=== PATIENT | female | born 1985 | race Caucasian/White ===

== ENCOUNTER 2016-09-06 12:29 | Emergency (ER) | payer MEDICAID, OTHER ==
[2016-09-06 12:30] VITALS: BMI 23.8
[2016-09-06 12:42] VITALS: RESP 18; TEMP 98.3
--- NOTE | 2016-09-06 13:58 | C.PDOC ---
History Of Present Illness 31 y/o female presents to the ED with complaints of decreased hearing to right ear for the past week. Pt also reports pain to right ear radiating to right face which onset today. Denies fever, chills. Pt using debrox in both ears with improvement to left but not right. She reports swimming in pool 1 week ago. Time Seen by Provider: 09/06/16 12:48 Chief Complaint (Nursing): ENT Problem History Per: Patient History/Exam Limitations: None Onset/Duration Of Symptoms: Days Current Symptoms Are (Timing): Still Present Symptoms Have Been: Continuous Severity: Moderate Anticoagulant/Antiplatlet Use?: No Past Medical History Reviewed: Historical Data, Nursing Documentation, Vital Signs Vital Signs: Last Vital Signs Temp 98.3 F 09/06/16 12:40 Pulse 72 09/06/16 14:33 Resp 18 09/06/16 14:33 BP 119/65 09/06/16 14:33 Pulse Ox 98 09/06/16 14:33 - Medical History PMH: Back Problems - [facility] Procedures CAUTERY TO STOP EPISTAX (05/22/01) Family History: States: Unknown Family Hx - Social History Hx Tobacco Use: Yes Hx Alcohol Use: Yes Hx Substance Use: Yes - Immunization History Hx Tetanus Toxoid Vaccination: Yes Hx Influenza Vaccination: Yes Hx Pneumococcal Vaccination: No Review Of Systems Constitutional: Negative for: Fever, Chills ENT: Positive for: Ear Pain (right), Other (decreased hearing right ear, right facial pain) Cardiovascular: Negative for: Chest Pain Respiratory: Negative for: Cough Physical Exam - Physical Exam Appears: Non-toxic, No Acute Distress Skin: Warm, Dry, No Rash Head: Atraumatic, Normacephalic Eye(s): bilateral: Normal Inspection Ear(s): Bilateral: Other (Left ear canal normal with some wax, TM not fully visualized. Right tragus tenderness with erythema, debris and wax in canal, canal patent. ) Nose: Normal Oral Mucosa: Moist Throat: Normal, No Erythema Neck: Normal, Normal ROM, Supple Lymphatic: No Adenopathy Cardiovascular: Rhythm Regular, No Murmur Respiratory: Normal Breath Sounds, No Rales, No Rhonchi, No Wheezing Neurological/Psych: Oriented x3, Normal Speech ED Course And Treatment O2 Sat by Pulse Oximetry: 99 (room air) Pulse Ox Interpretation: Normal Disposition - Disposition Referrals: Marino Wilson MD [Staff Provider] - Disposition: HOME/ ROUTINE Disposition Time: 14:12 Condition: STABLE Additional Instructions: Use drops and take antibiotics as prescribed. Follow up with Dr Wilson as soon as possible. Tylenol or Ibuprofen for pain. 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 - Scribe Statement The provider has reviewed the documentation as recorded by the Scribepifanio Nicolas All medical record entries made by the Dejuanibepifanio were at my direction and personally dictated by me. I have reviewed the chart and agree that the record accurately reflects my personal performance of the history, physical exam, medical decision making, and the department course for this patient. I have also personally directed, reviewed, and agree with the discharge instructions and disposition.
[2016-09-06 14:33] VITALS: BP 119/65; PULSE 72
[2016-09-06 22:40] VITALS: O2SAT 99
== END 2016-09-06 14:34 | disposition home or self-care (01) ==
LOC: C.ER 12:29
DX: H60.91 Unspecified otitis externa, right ear (principal)

== ENCOUNTER 2016-09-08 15:40 | Emergency (ER) | payer OTHER ==
[2016-09-08 15:40] VITALS: BMI 23.8
[2016-09-08 16:04] VITALS: RESP 18; O2SAT 100
[2016-09-08] MEDS ORDERED: Sodium Chloride 0.9% 1,000 ML IV ONE (16:12)
[2016-09-08] MEDS ORDERED: Sodium Chloride 0.9% 1,000 ML ONE (16:24)
[2016-09-08] MEDS ORDERED: Morphine 4 MG/ML VIAL ONE (16:25)
--- NOTE | 2016-09-08 16:27 | C.PDOC ---
History Of Present Illness 31 year old female presents to the ED for evaluation from ENT for complaints of right ear pain and right sided headache. Patient states she was evaluated in the ED several days ago and was discharged home with antibiotics for an ear infection. She notes she saw her ENT today and was sent to ED to rule out mastoiditis. Patient denies any fever or other complaints at this time. Time Seen by Provider: 09/08/16 15:59 Chief Complaint (Nursing): ENT Problem History Per: Patient History/Exam Limitations: None Onset/Duration Of Symptoms: Days Current Symptoms Are (Timing): Still Present Quality (Mouth/Throat): denies: Tenderness Symptoms Have Been: Continuous Anticoagulant/Antiplatlet Use?: No Recent Aspirin Use: No Past Medical History Reviewed: Historical Data, Nursing Documentation, Vital Signs Vital Signs: Last Vital Signs Temp 98.3 F 09/08/16 18:11 Pulse 80 09/08/16 18:11 Resp 18 09/08/16 18:11 BP 112/70 09/08/16 18:11 Pulse Ox 100 09/08/16 18:11 - Medical History PMH: Back Problems - [facility] Procedures CAUTERY TO STOP EPISTAX (05/22/01) Family History: States: Unknown Family Hx - Social History Hx Tobacco Use: Yes Hx Alcohol Use: Yes Hx Substance Use: Yes - Immunization History Hx Tetanus Toxoid Vaccination: Yes Hx Influenza Vaccination: Yes Hx Pneumococcal Vaccination: No Review Of Systems Constitutional: Negative for: Fever, Chills ENT: Positive for: Ear Pain. Negative for: Throat Pain Cardiovascular: Negative for: Chest Pain, Palpitations Respiratory: Negative for: Cough, Shortness of Breath Gastrointestinal: Negative for: Nausea, Vomiting, Abdominal Pain, Diarrhea Neurological: Positive for: Headache Physical Exam - Physical Exam Appears: Non-toxic, No Acute Distress Skin: Warm, Dry Head: Atraumatic, Normacephalic Eye(s): bilateral: Normal Inspection, PERRL, EOMI Ear(s): Left: Normal, Right: Other (Mild cerumen impaction. Mastoid tenderness) Oral Mucosa: Moist Throat: Normal, No Erythema, No Exudate Neck: Supple Chest: Symmetrical, No Deformity Cardiovascular: Rhythm Regular Respiratory: Normal Breath Sounds, No Accessory Muscle Use, No Rales, No Rhonchi , No Wheezing Neurological/Psych: Oriented x3 ED Course And Treatment - Laboratory Results Result Diagrams: 09/08/16 16:23 09/08/16 16:23 O2 Sat by Pulse Oximetry: 100 (room air ) Medical Decision Making Medical Decision Making: r/o mastoiditis. 640: pt reassesedLpain improved. ct does not show mastoiditis. discussed with dr lazo. advises to dose decadron, antibitoics, and d/c with medrol dose pack. advises pt to f/u on sunday. advises that pt will need tube if not improving. pt informed. Disposition - Disposition Disposition: HOME/ ROUTINE Disposition Time: 18:42 Condition: STABLE Additional Instructions: please follow up with your doctor and dr lazo. he is expecting to se eyou sunday. return to er with worsening symptoms or concerns. Prescriptions: Methylprednisolone [Medrol Dose Pack (21 tabs)] 4 mg PO DAILY #21 mg Naproxen [Naprosyn] 500 mg PO BID PRN #14 tablet PRN Reason: Pain, Mild (1-3) Sulfamethoxazole/Trimethoprim [Bactrim DS 800 mg-160 mg] 1 tab PO BID #14 tab Instructions: Otitis Media (ED), Serous Otitis Media (ED) - Clinical Impression Clinical Impression: Otitis media - Scribe Statement The provider has reviewed the documentation as recorded by the Scribe Rosalind Grady All medical record entries made by the Dejuanibepifanio were at my direction and personally dictated by me. I have reviewed the chart and agree that the record accurately reflects my personal performance of the history, physical exam, medical decision making, and the department course for this patient. I have also personally directed, reviewed, and agree with the discharge instructions and disposition.
[2016-09-08 16:29] LABS: BASO # 0.1 K/uL (0.0-0.2); BASO % 0.5 % (0.0-2.0); EOS # 0.2 K/uL (0.0-0.7); EOS % 1.4 % (0.0-4.0); LYMPH # 2.6 K/uL (1.0-4.3); LYMPH % 18.5 % (20.0-40.0); MEAN CELL VOLUME 92.2 fL (81.0-99.0); MEAN CORPUSCULAR HGB CONC 33.7 g/dL (33.0-37.0); MEAN PLATELET VOLUME 7.4 fL (7.2-11.7); MONO # 1.1 K/uL (0.0-0.8); MONO % 7.6 % (0.0-10.0); RBC 4.83 Mil/uL (3.80-5.20); RED CELL DISTRIBUTION WIDTH 13.1 % (11.5-14.5); WHITE BLOOD COUNT 13.9 K/uL (4.8-10.8)
[2016-09-08 16:34] LABS: INR 0.9; PROTHROMBIN TIME 10.6 SECONDS (9.7-12.2)
[2016-09-08 16:40] LABS: ALBUMIN 4.4 g/dL (3.5-5.0)
[2016-09-08 16:43] LABS: ALB/GLOB RATIO 1.2 (1.0-2.1); AST/SGOT 21 U/L (14-36); GFR AFRICAN-AMERICAN > 60; GFR NON-AFRICAN AMERICAN > 60
[2016-09-08 16:44] LABS: ALT/SGPT 19 U/L (9-52); BLOOD UREA NITROGEN 15 mg/dL (7-17); CALCIUM 9.4 mg/dl (8.6-10.4)
[2016-09-08] MEDS ORDERED: Iodixanol 320 MG/ML 100 ML BOTTLE IV ONE (17:00)
--- NOTE | 2016-09-08 18:12 | CT ---
PROCEDURE: CT HEAD WITHOUT CONTRAST. HISTORY: right sided manzano/swelling COMPARISON: None available. TECHNIQUE: Axial computed tomography images were obtained through the head/brain without intravenous contrast. Radiation dose: Total exam DLP = 742.42 mGy-cm. This CT exam was performed using one or more of the following dose reduction techniques: Automated exposure control, adjustment of the mA and/or kV according to patient size, and/or use of iterative reconstruction technique. FINDINGS: HEMORRHAGE: No intracranial hemorrhage. BRAIN: No mass effect or edema. No atrophy or chronic microvascular ischemic changes. VENTRICLES: Unremarkable. No hydrocephalus. CALVARIUM: Unremarkable. PARANASAL SINUSES: Unremarkable as visualized. No significant inflammatory changes. MASTOID AIR CELLS: Unremarkable as visualized. No inflammatory changes. OTHER FINDINGS: None. IMPRESSION: Normal CT of the Head. No intracranial mass, hemorrhage or evidence of acute infarct.
[2016-09-08] MEDS ORDERED: cefTRIAXone IV 1 gm in Dextros 50 ML IVPB ONE ×2 (18:41→18:58)
[2016-09-08] MEDS ORDERED: Dexamethasone 4 mg/1 ml ONE ×2 (18:58→19:01)
[2016-09-08 19:23] VITALS: BP 117/81; PULSE 91; TEMP 98.2
--- NOTE | 2016-09-09 14:04 | CT ---
PROCEDURE: CT scan of the temporal bones dated 09/08/2016 HISTORY: Right ear pain COMPARISON: Comparison made with the CT scan of the brain obtained earlier same day. TECHNIQUE: Following ng administration of iodinated intravenous contrast, high resolution axial images of the temporal bones were obtained. Coronal and sagittal reformats were generated. Contrast dose: 100 cc Visipaque 320 contrast material. Radiation dose: Total exam DLP = 609.20 mGy-cm. This CT exam was performed using one or more of the following dose reduction techniques: Automated exposure control, adjustment of the mA and/or kV according to patient size, and/or use of iterative reconstruction technique Findings: The current study reveals mild prominence of the soft tissues within the right external auditory canal more so than left. Findings suggest either cerumen or possibly some localized inflammation. Rule out mild external otitis media. (the findings are NOT felt to represent necrotizing-malignant external otitis) The right mastoid air complex are relatively well-developed. Partial opacification seen in several right-sided at mastoid air cells consistent with mild mastoiditis. Additionally, there is a small amount of soft tissue seen extending into the mastoid antrum. In addition, there is soft tissue seen within the middle ear canal incompletely surrounding the ossicular chain the including Prussak space however there are no destructive changes of the drum spur or ossicles of. Findings may represent otitis media however some granulation tissue on may be present. The the possibility of a cholesteatoma would be less likely than given the lack of destructive changes of the drum spur or ossicles. Suspect thickening of the right tympanic membrane. . The inner ear structures unremarkable. Left temporal bone and contents grossly unremarkable. . There may be some minor cerumen within left external auditory canal Left mastoid air complex is well-developed and currently well-aerated. There are no fluid levels seen to suggest acute mastoiditis. The middle ear canal and contents unremarkable. . No soft tissue or fluid seen within the left middle ear canal the drum spur and left ossicular chain intact and unremarkable. . The inner ear ear structures also unremarkable. Incidental note made of defect along the anterior inferior margin of the nasal septum. Clinical correlation with social history recommended. . Mild enlargement of the adenoids. Minor mucosal thickening within both maxillary antra with minimal mucosal thickening in the few ethmoid air cells. Orbits and contents unremarkable. Impression: Findings suggest mild otitis media an mastoiditis as above. There is also soft tissue within the right external auditory canal part of which could represent cerumen however possibility of a mild external otitis media ; (the findings are NOT felt to represent necrotizing-malignant external otitis)
== END 2016-09-08 19:23 | disposition home or self-care (01) ==
LOC: C.ER 15:40
DX: H65.91 Unspecified nonsuppurative otitis media, right ear (principal); Z72.0 Tobacco use
CPT/HCPCS: 70450; 70481; 80053; 85025; 85610; 85730; 96361; 96365; 96375; 99285; J0696; J1100; J1885; J2270; J7040; Q9967